=== PATIENT | female | born 1950 | race Caucasian/White ===

== ENCOUNTER 2018-09-25 11:52 | Inpatient (IN) | payer OTHER ==
--- NOTE | 2018-09-25 12:57 | PDOC ---
History of Present Illness - General Stated Complaint: DIZINESS/SOB Time Seen by Provider: 09/25/18 12:08 - History of Present Illness Initial Comments: Aranza Chase is a 68yo woman with a PMH of CAD (cath 3yrs ago at [place]) , HTN, HLD who presents with mid-sternal and left arm pain, RYAN, and dizziness this morning since she woke around 7am. She additionally reports right-sided numbness and weakness that started at some point overnight. This is mild but noticeable, and she has never had either symptom before. She first noticed the weakness/numbness when she woke up around 1am. She is most concerned about the shortness of breath as this has never happened before. She says that she gets short of breath "after 2 steps" today when she normally has no SOB when walking. She states that the chest pain is mid-sternal , but she is unable to describe the pain. It does not appear to be related to position or arm movement, and it does not feel similar to pain she had previously before her cardiac cath. The dizziness she describes as an inability to keep her balance, and she is not sure whether she feels that the world is spinning or not. She denies any recent cough, fever/chills, vomiting, poor PO intake, or change in medication. NIH Stroke Scale - Last Known Well Date/Time & Onset Date Last Known Well: 09/24/18 - Initial Evaluation Level of consciousness: Alert Ask patient the month and their age: Answers both correctly Ask patient to open & close eyes; make fist and let go: Obeys both correctly Best gaze (horizontal eye movement): Normal Visual field testing: No visual field loss Facial paresis (Show teeth/raise eyebrows/close eyes tight): Normal symmetrical movement Motor Function: Left Arm: Normal Motor Function: Right Arm: Drift Motor Function: Left Leg: Normal (extends leg 30 degrees for 5 seconds without drift) Motor Function: Right Leg: Drift Limb Ataxia: No ataxia Sensory(Use pinprick test arms,legs,trunk,face/side to side): Mild to moderate decrease in sensation Best language (Describe picture, name items, read sentences): No Aphasia Dysarthria (read several words): Normal articulation Extinction and Inattention: No abnormality - Total Score NIH Stroke Scale Score: 3 Past History - Past Medical History Allergies/Adverse Reactions: Allergies Allergy/AdvReac Type Severity Reaction Status Date / Time No Known Allergies Allergy Verified 09/25/18 12:40 Home Medications: Ambulatory Orders Amlodipine Besylate [Norvasc -] 0 mg PO DAILY 09/25/18 Aspirin [Aspirin EC] 81 mg PO DAILY 09/25/18 Omeprazole 20 mg PO DAILY 09/25/18 Oxycodone HCl/Acetaminophen [Percocet 5-325 mg Tablet] 1 tab PO Q4H PRN Simvastatin 40 mg PO DAILY 09/25/18 COPD: No HTN: Yes Hypercholesterolemia: Yes - Surgical History Abdominal Surgery: Yes Cholecystectomy: Yes - Suicide/Smoking/Psychosocial Hx Smoking History: Current every day smoker Number of Cigarettes Smoked Daily: 10 Information on smoking cessation initiated: No Hx Alcohol Use: No Drug/Substance Use Hx: No Substance Use Type: None Review of Systems - Review of Systems Comments:: General: No fevers, no chills, no weight or appetite change, no malaise HEENT: No changes in vision, no changes in hearing, no congestion, no sore throat CV: See HPI Pulm: + SOB, no cough, no wheezing GI: No nausea or vomiting, no change in bowel habits, no melena : No frequency, no urgency, no dysuria Musc: No back pain, no joint swelling, no recent injury Skin: No rash, no lesions, no erythema Endo: No excessive thirst, no heat/cold intolerance Heme: No unusual bruising or bleeding, no swollen glands Neuro: No syncope, + numbness/tingling, + right weakness Vasc: No claudication Psych: No recent change in mood, no SI or HI *Physical Exam - Vital Signs Last Vital Signs Temp Pulse Resp BP Pulse Ox 98.3 F 62 19 133/54 L 98 09/25/18 12:00 09/25/18 12:00 09/25/18 12:00 09/25/18 12:00 09/25/18 12:00 - Physical Exam Comments: General: Comfortable, no acute distress HEENT: PERRL, EOMI, MMM, voice normal, normal neck ROM, no LAD Cards: RRR, no murmur appreciated Pulm: Comfortable on room air, clear to auscultation bilaterally Abd: Soft, nontender, nondistended : No CVA tenderness Ext: Atraumatic. No LE edema. ROM intact Vasc: Extremities WWP Skin: Normal color, no rashes or lesions Neuro: A&Ox3, CN grossly intact, normal speech. Slight drift in Rt arm and leg. Pinprick less sharp on rt than left. No ataxia, no visual abnormalities Psych: Mood appropriate to situation Heart Score/ECG Review - History History: Highly suspicious - Electrocardiogram EKG: Normal - Age Age: >/= 65 - Risk Factors Based on the list above the patient has:: >/=3 risk factors or Hx atherosclerotic disease - Troponin Troponin: </= normal limit - Score Heart Score - Total: 6 ED Treatment Course - LABORATORY CBC & Chemistry Diagram: 09/25/18 13:27 09/25/18 13:27 Medical Decision Making - Medical Decision Making 09/25/18 12:51 Aranza Chase is a 68yo woman with a PMH of CAD (cath 3yrs ago at [place]) , HTN, HLD who presents with mid-sternal and left arm pain, RYAN, and dizziness this morning since she woke around 7am as well as right-sided numbness and weakness that started at some point overnight. - Chest pain and associated symptoms concerning for ACS, especially given h/o known CAD. Heart score 6 - CBC, CMP, trop, EKG, CXR ordered - CT head for eval of neuro symptoms; weakness and sensory changes noted on exam , stroke scale 3 09/25/18 14:35 - Labs completed, reviewed. No concerning abnormalities - CT head negative - EKG w/ NSR, HR 62, normal intervals, left axis deviation, incomplete RBBB, no ST or t-wave changes - Given concerning neuro and cardiac symptoms, will admit for additional workup. Page sent for admission 09/25/18 15:20 - Pt endorsed to Jewel Ramirez. Will admit to Dr Ellison's service on telemetry. 09/25/18 16:44 - Spoke to Dr Greenfield as pt sees him as an outpatient. Requesting that Ms Chase be given a full-dose aspirin. He will see her while in the hospital. Discussed with Dr Horton. Nazanin Donohue PGY2 *DC/Admit/Observation/Transfer Diagnosis at time of Disposition: Dyspnea on exertion, Right sided weakness Chest pain Qualifiers: Chest pain type: unspecified Qualified Code(s): R07.9 - Chest pain, unspecified - Discharge Dispostion Decision to Admit order: Yes - Referrals - Patient Instructions - Post Discharge Activity
[2018-09-25 13:47] LABS: INR 1.15 (0.83-1.09); PROTHROMBIN TIME (PATIENT) 13.6 SEC (9.7-13.0)
[2018-09-25 13:50] LABS: ACTIVATED PTT 31.4 SECONDS (25.2-36.5)
[2018-09-25 14:02] LABS: ALBUMIN 3.7 g/dl (3.4-5.0); ALK PHOS 124 U/L (45-117); ANION GAP 4 MMOL/L (8-16); BILIRUBIN,TOTAL 0.3 mg/dL (0.2-1); CALCIUM 8.9 mg/dL (8.5-10.1); CHLORIDE 110 mmol/L (98-107); CO2 29 mmol/L (21-32); CREATININE 0.8 mg/dL (0.55-1.3); GLUCOSE,RANDOM 129 mg/dL (74-106); POTASSIUM 3.8 mmol/L (3.5-5.1); SGOT/AST 9 U/L (15-37); SGPT/ALT 12 U/L (13-61); SODIUM 143 mmol/L (136-145); TOT PROT 6.8 g/dl (6.4-8.2)
[2018-09-25 14:04] LABS: BASO % 0.4 % (0-2.0); EOS % 1.3 % (0-4.5); HEMATOCRIT 35.7 % (32.4-45.2); HEMOGLOBIN 11.8 GM/dL (10.7-15.3); LYMPH % 21.8 % (8-40); MCH 28.1 pg (25.7-33.7); MEAN PLT VOLUME 8.8 fl (7.5-11.1); MONO % 6.1 % (3.8-10.2); NEUT % 70.4 % (42.8-82.8); RDW 14.3 % (11.6-15.6)
--- NOTE | 2018-09-25 14:14 | PDOC ---
Documentation entered by Edith Philip SCRIBE, acting as scribe for Candy Horton MD. Candy Horton MD: This documentation has been prepared by the rachellibe, Edith Philip SCRIBE, under my direction and personally reviewed by me in its entirety. I confirm that the documentation accurately reflects all work, treatment, procedures, and medical decision making performed by me. Attending Attestation - Resident Resident Name: JaydeNazanin - ED Attending Attestation I have performed the following: I have examined & evaluated the patient, The case was reviewed & discussed with the resident, I agree w/resident's findings & plan, Exceptions are as noted - HPI HPI: 09/25/18 13:09 The patient is a 68-yo F h/o HTN, HLD, CAD, who presents to the ED with exertional sob and chest pain, and new onset of weakness and RT-sided numbness. pt states her weakness started 2 days prior, was initially generalized , then noted to be right sided. this am pt family noted that her face had a right sided droop. chest pain was yesterday, described as a tightness. also noted right sided numbness. has had a cath 3 yrs ago noted to have CAD. see debeader at [facility] [place], has also seen a nuerologist in the past dr russell. no pmhx of stroke, but strong family h/o cva. The patient denies any fevers, chills, nausea, vomiting, or diarrhea. no urinary complaints. Allergies: NKA PCP: Dr. Shen - Physicial Exam PE: 09/25/18 14:07 NAD awake alert lungs clear bilat heart rrr no mrg abd soft nt nd ext wwp no edema. no calf tenderness. nuero pt awake alert oriented x 3. strength mild weakness noted right upper and lower ext 4+/5. decreased sensation to light touch on right side. speech clear, VF intact. CN II - XII intact. skin warm and dry. - Medical Decision Making 09/25/18 14:10 pt 68 yo F h/o HTN HLD CAD here with right sided weakness, numbness and chest pain. differential includes cva, mass, ich, acs, plan ct head labs ekg cxr nuero consult, aspirin, will admit to tele . 09/25/18 16:16 Dr. Tomlinson was paged and notified via phone service. NIH Stroke Scale - Last Known Well Date/Time & Onset Date Last Known Well: 09/23/18 - Initial Evaluation Level of consciousness: Alert Ask patient the month and their age: Answers both correctly Ask patient to open & close eyes; make fist and let go: Obeys both correctly Best gaze (horizontal eye movement): Normal Visual field testing: No visual field loss Facial paresis (Show teeth/raise eyebrows/close eyes tight): Normal symmetrical movement Motor Function: Left Arm: Normal Motor Function: Right Arm: Drift Motor Function: Left Leg: Normal (extends leg 30 degrees for 5 seconds without drift) Motor Function: Right Leg: Drift Limb Ataxia: No ataxia Sensory(Use pinprick test arms,legs,trunk,face/side to side): Mild to moderate decrease in sensation (right arm and leg) Best language (Describe picture, name items, read sentences): No Aphasia Dysarthria (read several words): Normal articulation Extinction and Inattention: No abnormality - Total Score NIH Stroke Scale Score: 3
[2018-09-25 14:23] LABS: PLATELET COUNT 237 K/MM3 (134-434)
[2018-09-25 14:31] LABS: N-TERMINAL BNP 63.4 pg/ml (5-125)
--- NOTE | 2018-09-25 16:00 | EKG ---
Test Reason : Blood Pressure : / mmHG Vent. Rate : 062 BPM Atrial Rate : 062 BPM P-R Int : 164 ms QRS Dur : 096 ms QT Int : 422 ms P-R-T Axes : 032 -03 058 degrees QTc Int : 428 ms NORMAL SINUS RHYTHM INCOMPLETE RIGHT BUNDLE BRANCH BLOCK BORDERLINE ECG NO PREVIOUS ECGS AVAILABLE Confirmed by PATSY COLIN MD ([id number]) on 09/25/2018 3:59:41 PM Referred By: Confirmed By:PATSY COLIN MD
[2018-09-25] MEDS ORDERED: oxyCODONE HCL 5 MG TABLET PO PRN (16:40)
[2018-09-25] MEDS ORDERED: ASPIRIN 81 MG CHEWABLE TABLETS PO ONE (16:45)
[2018-09-25] MEDS ORDERED: ASPIRIN 81 MG CHEWABLE TABLETS ONE (17:42)
--- NOTE | 2018-09-25 21:14 | HP ---
Admitting History and Physical - Primary Care Physician PCP: Tima Shen - Admission Chief Complaint: Chest pain with right sided weakness History of Present Illness: Patient is a 68 y/o female with past medical history of CAD (cath 3 yrs ago at [facility]), HTN, HLD. Patient presented to ER with complaints of chest pain and right sided weakness/numbness. Patient states that at 1am she felt sharp, non- radiating, mid chest pain accompanied with left arm pain, right sided weakness/ numbness, SOB, and palpitations. History Source: Patient Limitations to Obtaining History: No Limitations - Past Medical History Cardiovascular: Yes: CAD, HTN, Hyperlipdemia - Past Surgical History Past Surgical History: Yes: Cholecystectomy, Hysterectomy, Joint Replacement (R knee), Tonsillectomy - Smoking History Smoking history: Current every day smoker Aproximately how many cigarettes per day: 10 - Alcohol/Substance Use Hx Alcohol Use: No - Social History Usual Living Arrangement: Yes: With Child ADL: Independent Home Medications - Allergies Allergies/Adverse Reactions: Allergies Allergy/AdvReac Type Severity Reaction Status Date / Time No Known Allergies Allergy Verified 09/25/18 12:40 - Home Medications Home Medications: Ambulatory Orders Amlodipine Besylate [Norvasc -] 0 mg PO DAILY 09/25/18 Aspirin [Aspirin EC] 81 mg PO DAILY 09/25/18 Omeprazole 20 mg PO DAILY 09/25/18 Oxycodone HCl/Acetaminophen [Percocet 5-325 mg Tablet] 1 tab PO Q4H PRN Simvastatin 40 mg PO DAILY 09/25/18 Review of Systems - Review of Systems Constitutional: reports: Weakness Eyes: reports: No Symptoms HENT: reports: No Symptoms Neck: reports: No Symptoms Cardiovascular: reports: Chest Pain, Palpitations, Shortness of Breath Respiratory: reports: SOB, SOB on Exertion Gastrointestinal: reports: Nausea Genitourinary: reports: No Symptoms Musculoskeletal: reports: Muscle Weakness Integumentary: reports: No Symptoms Neurological: reports: Dizziness, Headache, Numbness (R side), Weakness (R side) Endocrine: reports: No Symptoms Hematology/Lymphatic: reports: No Symptoms Psychiatric: reports: No Symptoms Physical Examination Vital Signs: Vital Signs Temperature 97.8 F 09/25/18 19:59 Pulse Rate 54 L 09/25/18 19:59 Respiratory Rate 18 09/25/18 19:59 Blood Pressure 127/57 L 09/25/18 19:59 O2 Sat by Pulse Oximetry (%) 100 09/25/18 19:59 Constitutional: Yes: No Distress, Calm, Obese Eyes: Yes: Conjunctiva Clear HENT: Yes: Atraumatic Neck: Yes: Supple Cardiovascular: Yes: Regular Rate and Rhythm Respiratory: Yes: Regular, CTA Bilaterally Gastrointestinal: Yes: Normal Bowel Sounds, Soft Musculoskeletal: Yes: Muscle Weakness Extremities: Yes: WNL Edema: No Neurological: Yes: Alert, Weakness (RUE and RLE), Other (no slurred speech, no facial droop) Psychiatric: Yes: Alert, Oriented Labs: CBC, BMP 09/25/18 13:27 09/25/18 13:27 Imaging - Results Cat Scan: Report Reviewed Problem List - Problems (1) Chest pain Assessment/Plan: -Cardiology consult -tele monitoring -troponin neg x 1 -aspirin 81mg daily Code(s): R07.9 - CHEST PAIN, UNSPECIFIED Qualifiers: Chest pain type: unspecified Qualified Code(s): R07.9 - Chest pain, unspecified (2) Dyspnea on exertion Assessment/Plan: -pulm consult -O2 via [place] prn for SOB -keep SpO2 >90% Code(s): R06.09 - OTHER FORMS OF DYSPNEA (3) Right sided weakness Assessment/Plan: -Neurology consult -Head CT scan shows no acute bleed or fracture -neuro checks -fall precautions Code(s): R53.1 - WEAKNESS Assessment/Plan see problem list dvt ppx
[2018-09-25] MEDS ORDERED: CYCLOBENZAPRINE HCL 10 MG TABLET (FP) ONE (21:26)
[2018-09-25] MEDS ORDERED: HEPARIN NA (PORCINE) 5,000 UNITS/ML 1ML VIAL ONE (21:26)
[2018-09-25] MEDS: CYCLOBENZAPRINE HCL 10 MG TABLET (FP) PO SCH (22:24)
[2018-09-25] MEDS: HEPARIN NA (PORCINE) 5,000 UNITS/ML 1ML VIAL SQ SCH (22:24)
[2018-09-26 07:12] LABS: BASO % 0.3 % (0-2.0); EOS % 1.2 % (0-4.5); HEMATOCRIT 34.3 % (32.4-45.2); HEMOGLOBIN 11.4 GM/dL (10.7-15.3); MCH 28.5 pg (25.7-33.7); MCHC 33.3 g/dl (32.0-36.0); MEAN CELL VOLUME 85.5 fl (80-96); MEAN PLT VOLUME 7.9 fl (7.5-11.1); MONO % 6.1 % (3.8-10.2); NEUT % 63.4 % (42.8-82.8); PLATELET COUNT 215 K/MM3 (134-434); RBC 4.01 M/mm3 (3.60-5.2); RDW 14.3 % (11.6-15.6); WHITE BLOOD COUNT 9.9 K/mm3 (4.0-10.0)
[2018-09-26 07:31] LABS: ALBUMIN 3.4 g/dl (3.4-5.0); ALK PHOS 119 U/L (45-117); ANION GAP 4 MMOL/L (8-16); BILIRUBIN,TOTAL 0.2 mg/dL (0.2-1); BLOOD UREA NITROGEN 14.8 mg/dL (7-18); CALCIUM 8.8 mg/dL (8.5-10.1); CHLORIDE 110 mmol/L (98-107); CHOLESTEROL 167 mg/dL (50-200); CO2 29 mmol/L (21-32); CREATININE 0.7 mg/dL (0.55-1.3); GLUCOSE,RANDOM 91 mg/dL (74-106); HDL CHOLESTEROL 46 mg/dL (40-60); MAGNESIUM 2.1 mg/dL (1.8-2.4); PHOSPHOROUS 3.7 mg/dL (2.5-4.9); POTASSIUM 3.9 mmol/L (3.5-5.1); SGOT/AST 8 U/L (15-37); SGPT/ALT 11 U/L (13-61); SODIUM 143 mmol/L (136-145); TOT PROT 6.3 g/dl (6.4-8.2); TRIGLYCERIDES 105 mg/dL (0-150)
--- NOTE | 2018-09-26 08:21 | PN ---
Progress Note, Physician Chief Complaint: Chest pain Right sided weakness History of Present Illness: Previous notes and events reviewed sleeping, but arouseable to tactile and verbal stimuli NAD sts feeling a little better continue to have chest tightness - Current Medication List Current Medications: Active Medications Acetaminophen (Tylenol -) 325 mg PO Q4H PRN PRN Reason: MAXWELL SCALE 1-10 Amlodipine Besylate (Norvasc -) 10 mg PO DAILY [facility] Aspirin (Ecotrin -) 81 mg PO DAILY [facility] Cyclobenzaprine HCl (Flexeril -) 10 mg PO HS [facility] Last Admin: 09/25/18 22:24 Dose: 10 mg Heparin Sodium (Porcine) (Heparin -) 5,000 unit SQ BID [facility] Last Admin: 09/25/18 22:24 Dose: 5,000 unit Oxycodone HCl (Roxicodone -) 1 mg PO Q4H PRN PRN Reason: PAIN SCALE 1-10 Pantoprazole Sodium (Protonix -) 40 mg PO DAILY [facility] - Objective Vital Signs: Vital Signs Temperature 98.3 F 09/26/18 07:09 Pulse Rate 51 L 09/26/18 07:09 Respiratory Rate 18 09/26/18 07:09 Blood Pressure 134/76 09/26/18 07:09 O2 Sat by Pulse Oximetry (%) 100 09/26/18 07:09 Constitutional: Yes: No Distress, Calm Eyes: Yes: Conjunctiva Clear HENT: Yes: Atraumatic Cardiovascular: Yes: Regular Rate and Rhythm Respiratory: Yes: Regular, CTA Bilaterally Gastrointestinal: Yes: Normal Bowel Sounds, Soft Musculoskeletal: Yes: Muscle Weakness Extremities: Yes: WNL Edema: No Neurological: Yes: Alert, Weakness (R side) Psychiatric: Yes: Alert, Oriented Labs: CBC, BMP 09/26/18 06:30 09/26/18 06:30 INR, PTT INR 1.15 (0.83-1.09) H 09/25/18 13:27 Problem List - Problems (1) Chest pain Assessment/Plan: -Cardiology consult -tele monitoring -troponin neg x 2 -aspirin 81mg daily Code(s): R07.9 - CHEST PAIN, UNSPECIFIED Qualifiers: Chest pain type: unspecified Qualified Code(s): R07.9 - Chest pain, unspecified (2) Dyspnea on exertion Assessment/Plan: -pulm consult -O2 via [place] prn for SOB -keep SpO2 >90% Code(s): R06.09 - OTHER FORMS OF DYSPNEA (3) Right sided weakness Assessment/Plan: -Neurology consult -Head CT scan shows no acute bleed or fracture -neuro checks -fall precautions Code(s): R53.1 - WEAKNESS Assessment/Plan see problem list dvt ppx
[2018-09-26] MEDS: PANTOPRAZOLE 40 MG TABLET (FP) PO SCH (10:30)
[2018-09-26] MEDS: amLODIPine BESYLATE 10 MG TABLET (FP) PO SCH (10:30)
[2018-09-26] MEDS: ASPIRIN COATED 81 MG TABLET.EC PO SCH (10:30)
[2018-09-26] MEDS: HEPARIN NA (PORCINE) 5,000 UNITS/ML 1ML VIAL SQ SCH ×2 (10:41→21:46)
--- NOTE | 2018-09-26 14:39 | CON.PULM ---
Consult Consult Specialty:: PULMONARY Referred by:: PMD Reason for Consultation:: RYAN - History of Present Illness Chief Complaint: SOB ON EXERTION History of Present Illness: Aranza Chase is a 68yo woman with a PMH of CAD (cath 3yrs ago at [place]) She states she may have a stent but is not sure, HTN, HLD who presents with mid- sternal chest discomfort and ryan. She also describes left arm pain,and dizziness this morning since she woke around 7am. She additionally reports right -sided numbness and weakness that started at some point overnight She denies any recent cough, fever/chills, vomiting, poor PO intake, or change in medication. She is an active smoker. 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 No: Asthma Gastrointestinal: No: Ascites, Ulcerative Colitis Renal/: No: Renal Failure Reproductive: Yes: Postmenopausal ...: No Heme/Onc: Yes: Anemia Musculoskeletal: Yes: Osteoarthritis Endocrine: No: Diabetes Mellitus - Past Surgical History Past Surgical History: Yes: Cholecystectomy, Hysterectomy, Joint Replacement (R knee), Tonsillectomy - Alcohol/Substance Use Hx Alcohol Use: No - Smoking History Smoking history: Current every day smoker Have you smoked in the past 12 months: Yes Aproximately how many cigarettes per day: 10 - Social History ADL: Independent Place of : Other History of Recent Travel: No Home Medications - Allergies Allergies/Adverse Reactions: Allergies Allergy/AdvReac Type Severity Reaction Status Date / Time No Known Allergies Allergy Verified 09/25/18 12:40 - Home Medications Home Medications: Ambulatory Orders Amlodipine Besylate [Norvasc -] 0 mg PO DAILY 09/25/18 Aspirin [Aspirin EC] 81 mg PO DAILY 09/25/18 Omeprazole 20 mg PO DAILY 09/25/18 Oxycodone HCl/Acetaminophen [Percocet 5-325 mg Tablet] 1 tab PO Q4H PRN Simvastatin 40 mg PO DAILY 09/25/18 Review of Systems - Review of Systems Constitutional: denies: Fever Eyes: denies: Blurred Vision HENT: denies: Difficult Swallowing Neck: denies: Decreased ROM Cardiovascular: reports: Chest Pain, Shortness of Breath Respiratory: reports: Cough, Exercise Intolerance, SOB, SOB on Exertion. denies : Hemoptysis, Wheezing Gastrointestinal: denies: Abdominal Pain Genitourinary: denies: Burning Breasts: reports: No Symptoms Reported Musculoskeletal: reports: No Symptoms Integumentary: reports: No Symptoms Neurological: reports: No Symptoms Endocrine: reports: No Symptoms Physical Exam Vital Sings: Vital Signs Temperature 98.4 F 09/26/18 10:15 Pulse Rate 57 L 09/26/18 10:15 Respiratory Rate 18 09/26/18 10:15 Blood Pressure 134/76 09/26/18 10:15 O2 Sat by Pulse Oximetry (%) 99 09/26/18 10:43 Constitutional: Yes: Calm Eyes: Yes: EOM Intact HENT: Yes: Normocephalic Neck: Yes: Trachea Midline Cardiovascular: Yes: S1, S2 Respiratory: Yes: CTA Bilaterally Gastrointestinal: Yes: Normal Bowel Sounds, Abdomen, Obese Edema: No Labs: CBC, BMP 09/26/18 06:30 09/26/18 06:30 Imaging - Results Chest X-ray: Report Reviewed, Image Reviewed EKG: Report Reviewed, Image Reviewed Problem List - Problems (1) COPD (chronic obstructive pulmonary disease) Code(s): J44.9 - CHRONIC OBSTRUCTIVE PULMONARY DISEASE, UNSPECIFIED (2) Chest pain Code(s): R07.9 - CHEST PAIN, UNSPECIFIED Qualifiers: Chest pain type: unspecified Qualified Code(s): R07.9 - Chest pain, unspecified (3) Dyspnea on exertion Code(s): R06.09 - OTHER FORMS OF DYSPNEA Assessment/Plan RYAN LIKELYDUE TO COPD IN ACTIVE SMOKER ATYPICAL CHEST PAIN WARRANTS INVESTIGATION WOULD OBTAIN CATH RESULTS FROM 3 YEARS AGO IF POSSIBLE CHECK PRE/POST AMB SPO2 ON R/A ECHO/CT CHEST CARDIO EVAL AWAITED BRONCHODILATORS/NO NEED FOR SYSTEMIC STEROIDS OR ABS AT THIS POINT/ SMOKING CESSATION WILL FOLLOW Wero MITCHELL MD
[2018-09-26] MEDS ORDERED: BUDESONIDE/FORMETEROL FUMARATE 80/4.5 mcg INHALER IH ONE (14:47)
--- NOTE | 2018-09-26 17:09 | CON.CARD ---
Consult Consult Specialty:: Cardiology Referred by:: Dr. Oleary Reason for Consultation:: chest pain - History of Present Illness Chief Complaint: chest pain, R sided weakness sob History of Present Illness: 68 year old woman with pmh HTN, HLD, unknown if has CAD reported cardiac cath at [facility] 3 years ago but pt does not know the results now admitted with chest pain, R sided weakness and numbness, sob, palpitations. pt seen and examined today in nad. currently asymptomatic. no pnd, orthopnea, or le edema. 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 No: Asthma Gastrointestinal: No: Ascites, Ulcerative Colitis Renal/: No: Renal Failure ...: No Musculoskeletal: Yes: Osteoarthritis Endocrine: No: Diabetes Mellitus - Past Surgical History Past Surgical History: Yes: Cholecystectomy, Hysterectomy, Joint Replacement (R knee), Tonsillectomy - Alcohol/Substance Use Hx Alcohol Use: No - Smoking History Smoking history: Current every day smoker Have you smoked in the past 12 months: Yes Aproximately how many cigarettes per day: 10 - Social History ADL: Independent History of Recent Travel: No Home Medications - Allergies Allergies/Adverse Reactions: Allergies Allergy/AdvReac Type Severity Reaction Status Date / Time No Known Allergies Allergy Verified 09/25/18 12:40 - Home Medications Home Medications: Ambulatory Orders Amlodipine Besylate [Norvasc -] 0 mg PO DAILY 09/25/18 Aspirin [Aspirin EC] 81 mg PO DAILY 09/25/18 Omeprazole 20 mg PO DAILY 09/25/18 Oxycodone HCl/Acetaminophen [Percocet 5-325 mg Tablet] 1 tab PO Q4H PRN Simvastatin 40 mg PO DAILY 09/25/18 Family Disease History - Family Disease History Family History: Denies Review of Systems - Review of Systems Constitutional: denies: No Symptoms, Chills, Diaphoresis, Fever, Lethargy, Loss of Appetite, Malaise, Night Sweats, Unintentional Wgt. Loss, Weakness, Other Eyes: denies: No Symptoms, Blind Spots, Blurred Vision, Double Vision, Eye Pain , Floaters, Photophobia, Recent Change in Vision, Other HENT: denies: No Symptoms, Difficult Swallowing, Ear Discharge, Ear Pain, Epistaxis, Gingival Bleeding, Hearing Loss, Mouth Swelling, Nasal Congestion, Ocular Prosthesis, Throat Pain, Toothache, Ringing in Ears, Other Neck: denies: No Symptoms, Decreased ROM, Lumps, Pain on Movement, Stiffness, Swollen Glands, Tenderness, Other Cardiovascular: reports: Chest Pain, Palpitations, Shortness of Breath. denies : No Symptoms, Edema, Other Respiratory: reports: SOB. denies: No Symptoms, Cough, Exercise Intolerance, Hemoptysis, Orthopnea, PND, Snoring, SOB on Exertion, Wheezing, Other Gastrointestinal: denies: No Symptoms, Abdominal Pain, Bloating, Constipation, Diarrhea, Dysphagia, Indigestion, Melena, Nausea, Rectal Bleeding, Vomiting, Vomiting Blood, Other Genitourinary: denies: No Symptoms, Burning, Discharge, Dysuria, Flank Pain, Frequency, Hematuria, Incontinence, Lesions, Menses, Pain, Testicular Mass, Testicular Pain, Testicular Swelling, Urgency, Vaginal Bleeding, Other Breasts: denies: No Symptoms Reported, See HPI, Breast Implants, Discharge from Nipple, Lumps, Pain, Skin Changes, Other Musculoskeletal: denies: No Symptoms, Back Pain, Crepitus, Decreased ROM, Extremity Pain, Joint Pain, Joint Swelling, Muscle Pain, Muscle Cramps, Muscle Weakness, Other Integumentary: denies: No Symptoms, Blister, Bruising, Change in Color, Eczema, Erythema, Incision, Lesions, Lump, Pallor, Pruritis, Rash, Wound, Other Neurological: denies: No Symptoms, Change in LOC, Change in Speech, Confusion, Dizziness, Headache, Incoordination, Numbness, Parasthesia, Pre-Existing Deficit , Seizure, Syncope, Tremors, Unsteady Gait, Weakness, Other Endocrine: denies: No Symptoms, Excessive Sweating, Flushing, Increased Hunger, Increased Thirst, Intolerance to Cold, Intolerance to Heat, Unexplained Weight Gain, Unexplained Weight Loss, Other Hematology/Lymphatic: denies: No Symptoms, Easily Bruised, Excessive Bleeding, Swollen Glands, Other Psychiatric: denies: No Symptoms, Altered Sleep Pattern, Anxiety, Depression, Hallucinations, Panic, Paranoia, Suicidal, Other - Risk Factors Known Risk Factors: Yes: Hypercholesterolemia, Hypertension Vital Signs: Vital Signs Temperature 98.4 F 09/26/18 14:30 Pulse Rate 62 07/14/19 17:02 Respiratory Rate 18 09/26/18 17:02 Blood Pressure 138/82 09/26/18 17:02 O2 Sat by Pulse Oximetry (%) 99 09/26/18 17:02 Constitutional: Yes: No Distress, Calm Eyes: Yes: Conjunctiva Clear, EOM Intact, PERRL HENT: Yes: Atraumatic, Normocephalic Neck: Yes: Supple, Trachea Midline Respiratory: Yes: Regular, CTA Bilaterally. No: Rales, Rhonchi, Wheezes Gastrointestinal: Yes: Normal Bowel Sounds, Soft. No: Distention, Tenderness Cardiovascular: Yes: Regular Rate and Rhythm. No: Bradycardia, Tachycardia, Pulse Irregular, Gallop, Rub, Varicosities JVD: No Carotid Bruit: No PMI: Non-Displaced Heart Sounds: Yes: S1, S2. No: Split S2, S3, S4, Clicks, Gallop, Rub, Bruit Murmur: No: Systolic Murmur, Diastolic Murmur Musculoskeletal: Yes: WNL Extremities: Yes: WNL Edema: No Peripheral Pulses WNL: Yes Peripheral Pulses: 2+ Left Doralis Pedis, 2+ Right Dorsalis Pedis Neurological: Yes: Alert, Oriented Psychiatric: Yes: Alert, Oriented - Other Data Labs, Other Data: CBC, BMP 09/26/18 06:30 09/26/18 06:30 INR, PTT INR 1.15 (0.83-1.09) H 09/25/18 13:27 Troponin, BNP 09/26/18 06:30 Troponin I < 0.02 Troponin, BNP 09/26/18 06:30 Troponin I < 0.02 nsr 62bpm incomplete rbbb Imaging - Results Chest X-ray: Report Reviewed, Image Reviewed EKG: Report Reviewed, Image Reviewed Other: Report Reviewed, Image Reviewed Assessment/Plan 68 year old woman with pmh HTN, HLD, unknown if has CAD reported cardiac cath at [facility] 3 years ago but pt does not know the results now admitted with chest pain, R sided weakness and numbness, sob, palpitations. currently asymptomatic. no pnd, orthopnea, or le edema. Chest pain-atypical -cardiac enzymes wnl -ekg no ischemia -no further chest pain since admission -Please Obtain results of cardiac cath from [facility] for review -if no sig CAD on prior cardiac cath then would be acceptable to have further cardiac work up as outpatient. -if she did have prior stents or if sig non-obs CAD was seen on last cardiac cath would then consider further work up. -no signs of CHF on exam or imaging -no signs of ischemia
[2018-09-26] MEDS ORDERED: ALBUTEROL SO4 2.5/IPRATROPIUM 0.5 INH SOL 3 ML VIAL.NEB. NEB SCH (18:00)
[2018-09-26] MEDS: oxyCODONE HCL 5 MG TABLET PO PRN (21:44)
[2018-09-26] MEDS: ACETAMINOPHEN 325 MG TABLET (FP) PO PRN (21:45)
[2018-09-26] MEDS: CYCLOBENZAPRINE HCL 10 MG TABLET (FP) PO SCH (21:45)
[2018-09-26] MEDS ORDERED: DEXAMETHASONE SOD PHOSPHATE 10 MG/1 ML VIAL ONE (21:50)
[2018-09-26] MEDS ORDERED: RANITIDINE HCL 150 MG TABLET (FP) ONE (21:51)
[2018-09-26] MEDS ORDERED: diphenhydrAMINE HCL 25 MG CAPSULE (FP) PO ONE (21:51)
[2018-09-27] MEDS: ALBUTEROL SO4 2.5/IPRATROPIUM 0.5 INH SOL 3 ML VIAL.NEB. NEB SCH ×4 (07:30→21:15)
--- NOTE | 2018-09-27 08:42 | CON.NEURO ---
Consult Consult Specialty:: Jean Pierre Referred by:: ER - History of Present Illness History of Present Illness: 68 years old woman with PMH CAD OA hypertension Anxiety Presents to the hospital with a chief complaint of chest pain heaviness fatigue and right-sided numbness and tingling. 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 No: Asthma Gastrointestinal: No: Ascites, Ulcerative Colitis Renal/: No: Renal Failure ...: No Musculoskeletal: Yes: Osteoarthritis Endocrine: No: Diabetes Mellitus - Past Surgical History Past Surgical History: Yes: Cholecystectomy, Hysterectomy, Joint Replacement (R knee), Tonsillectomy - Alcohol/Substance Use Hx Alcohol Use: No - Smoking History Smoking history: Current every day smoker Have you smoked in the past 12 months: Yes Aproximately how many cigarettes per day: 10 - Social History ADL: Independent History of Recent Travel: No Home Medications - Allergies Allergies/Adverse Reactions: Allergies Allergy/AdvReac Type Severity Reaction Status Date / Time No Known Allergies Allergy Verified 09/25/18 12:40 - Home Medications Home Medications: Ambulatory Orders Amlodipine Besylate [Norvasc -] 0 mg PO DAILY 09/25/18 Aspirin [Aspirin EC] 81 mg PO DAILY 09/25/18 Omeprazole 20 mg PO DAILY 09/25/18 Oxycodone HCl/Acetaminophen [Percocet 5-325 mg Tablet] 1 tab PO Q4H PRN Simvastatin 40 mg PO DAILY 09/25/18 Family Disease History - Family Disease History Family History: Denies (stroke) Review of Systems - Review of Systems Constitutional: reports: No Symptoms Eyes: reports: No Symptoms HENT: reports: No Symptoms Neurological: reports: Headache, Incoordination, Numbness, Parasthesia Physical Exam-Neuro Vital Signs: Vital Signs Temperature 97.5 F L 09/27/18 06:00 Pulse Rate 58 L 09/27/18 06:00 Respiratory Rate 18 09/27/18 06:00 Blood Pressure 135/70 09/27/18 06:00 O2 Sat by Pulse Oximetry (%) 99 09/26/18 21:00 Constitutional: Yes: Well Nourished Neck: Yes: WNL Labs: CBC, BMP 09/26/18 06:30 09/26/18 06:30 INR, PTT INR 1.15 (0.83-1.09) H 09/25/18 13:27 - Neuro Exam Level Of Consciousness: Yes: Oriented to Person, Oriented to Place, Oriented to Time Eyes: Yes: PERRLA Speech: WNL Dominant Hand: Right Cranial Nerves II-XII Intact: Yes Gag: Present DTR's: 1+ Left Bicep, 1+ Right Bicep, 1+ Left Tricep, 1+ Right Tricep, 1+ Left Brachioradialis Response to light touch: Abnormal Response to pain prick: Abnormal Response to temperature: Abnormal Motor Strength: 2/5: Right Arm, 3/5: Left Arm, Left Leg, Right Leg Gait: Deferred Imaging - Results Cat Scan: Image Reviewed Problem List - Problems (1) Right sided weakness Assessment/Plan: left MCA lacunar stroke subacute Not a candidate for TPA 1. MRI of the brain with no contrast. 2. Full aspirin. 3. Echocardiogram. 4. Out of bed to chair. 5. DVT prophylaxis. 6. Physical therapy Thank you very much for allowing me to be part of this patient neurological care Code(s): R53.1 - WEAKNESS
--- NOTE | 2018-09-27 08:59 | PN ---
Progress Note, Physician - Current Medication List Current Medications: Active Medications Acetaminophen (Tylenol -) 325 mg PO Q4H PRN PRN Reason: MAXWELL SCALE 1-10 Last Admin: 09/26/18 21:45 Dose: 325 mg Albuterol/Ipratropium (Duoneb -) 1 amp NEB RQID [facility] Amlodipine Besylate (Norvasc -) 10 mg PO DAILY [facility] Last Admin: 09/26/18 10:30 Dose: 10 mg Aspirin (Ecotrin -) 81 mg PO DAILY [facility] Last Admin: 09/26/18 10:30 Dose: 81 mg Cyclobenzaprine HCl (Flexeril -) 10 mg PO HS [facility] Last Admin: 09/26/18 21:45 Dose: 10 mg Heparin Sodium (Porcine) (Heparin -) 5,000 unit SQ BID [facility] Last Admin: 09/26/18 21:46 Dose: 5,000 unit Oxycodone HCl (Roxicodone -) 5 mg PO Q4H PRN PRN Reason: PAIN SCALE 1-10 Last Admin: 09/26/18 21:44 Dose: 5 mg Pantoprazole Sodium (Protonix -) 40 mg PO DAILY [facility] Last Admin: 09/26/18 10:30 Dose: 40 mg - Objective Vital Signs: Vital Signs Temperature 97.5 F L 09/27/18 06:00 Pulse Rate 58 L 09/27/18 06:00 Respiratory Rate 18 09/27/18 06:00 Blood Pressure 135/70 09/27/18 06:00 O2 Sat by Pulse Oximetry (%) 99 09/26/18 21:00 Cardiovascular: Yes: Regular Rate and Rhythm Respiratory: Yes: Regular, CTA Bilaterally Gastrointestinal: Yes: Normal Bowel Sounds, Soft Labs: CBC, BMP 09/26/18 06:30 09/26/18 06:30 INR, PTT INR 1.15 (0.83-1.09) H 09/25/18 13:27 Assessment/Plan - Problems (1) Chest pain Assessment/Plan: -Cardiology consult-NOTED--RECORDS FROM [facility] -tele monitoring -troponin neg x 2 -aspirin 81mg daily Code(s): R07.9 - CHEST PAIN, UNSPECIFIED Qualifiers: Chest pain type: unspecified Qualified Code(s): R07.9 - Chest pain, unspecified (2) Dyspnea on exertion Assessment/Plan: -pulm consult--CT COPD NO ACUTE PATH -O2 via NC prn for SOB -keep SpO2 >90% Code(s): R06.09 - OTHER FORMS OF DYSPNEA (3) Right sided weakness Assessment/Plan: -Neurology consult--MRI -Head CT scan shows no acute bleed or fracture -neuro checks -fall precautions Code(s): R53.1 - WEAKNESS
[2018-09-27] MEDS: PANTOPRAZOLE 40 MG TABLET (FP) PO SCH (11:57)
[2018-09-27] MEDS: ASPIRIN COATED 81 MG TABLET.EC PO SCH (11:57)
[2018-09-27] MEDS: amLODIPine BESYLATE 10 MG TABLET (FP) PO SCH (11:57)
[2018-09-27] MEDS: HEPARIN NA (PORCINE) 5,000 UNITS/ML 1ML VIAL SQ SCH ×2 (11:57→22:46)
--- NOTE | 2018-09-27 14:41 | PN ---
Progress Note, Physician Chief Complaint: RUE weakness improving No chest pain No events on tele History of Present Illness: 68 year old woman with pmh HTN, HLD, unknown if has CAD reported cardiac cath at [facility] 3 years ago but pt does not know the results now admitted with chest pain, R sided weakness and numbness, sob, palpitations. currently asymptomatic. no pnd, orthopnea, or le edema. - Current Medication List Current Medications: Active Medications Acetaminophen (Tylenol -) 325 mg PO Q4H PRN PRN Reason: MAXWELL SCALE 1-10 Last Admin: 09/26/18 21:45 Dose: 325 mg Albuterol/Ipratropium (Duoneb -) 1 amp NEB RQID [facility] Last Admin: 09/27/18 12:01 Dose: 1 amp Amlodipine Besylate (Norvasc -) 10 mg PO DAILY [facility] Last Admin: 09/27/18 11:57 Dose: 10 mg Aspirin (Ecotrin -) 81 mg PO DAILY [facility] Last Admin: 09/27/18 11:57 Dose: 81 mg Cyclobenzaprine HCl (Flexeril -) 10 mg PO HS [facility] Last Admin: 09/26/18 21:45 Dose: 10 mg Heparin Sodium (Porcine) (Heparin -) 5,000 unit SQ BID [facility] Last Admin: 09/27/18 11:57 Dose: 5,000 unit Oxycodone HCl (Roxicodone -) 5 mg PO Q4H PRN PRN Reason: PAIN SCALE 1-10 Last Admin: 09/26/18 21:44 Dose: 5 mg Pantoprazole Sodium (Protonix -) 40 mg PO DAILY [facility] Last Admin: 09/27/18 11:57 Dose: 40 mg - Objective Vital Signs: Vital Signs Temperature 98.2 F 09/27/18 14:00 Pulse Rate 58 L 09/27/18 14:00 Respiratory Rate 18 09/27/18 14:00 Blood Pressure 115/62 09/27/18 14:00 O2 Sat by Pulse Oximetry (%) 99 09/27/18 09:00 Constitutional: Yes: No Distress Neck: Yes: Supple Cardiovascular: Yes: Regular Rate and Rhythm, S1, S2. No: JVD, Murmur Respiratory: Yes: CTA Bilaterally Gastrointestinal: Yes: Soft Edema: No Labs: CBC, BMP 09/26/18 06:30 09/26/18 06:30 INR, PTT INR 1.15 (0.83-1.09) H 09/25/18 13:27 Problem List - Problems (1) Right sided weakness Code(s): R53.1 - WEAKNESS Assessment/Plan 68 year old woman with pmh HTN, HLD, unknown if has CAD reported cardiac cath at [facility] 3 years ago but pt does not know the results now admitted with chest pain, R sided weakness and numbness, sob, palpitations. currently asymptomatic. no pnd, orthopnea, or le edema. 1) Chest pain-atypical -cardiac enzymes wnl -ekg no ischemia -no further chest pain since admission -Please Obtain results of cardiac cath from [facility] for review -Neurology Consult note comments on MCA lacunar subacute stroke. If patient had recent stroke than no ischemia work up at this time. Plan for echocardiogram Carotid duplex MRI brain Monitor on tele and will likely need outpatient 30 day event monitor. -Aspirin as per neuro Statin/bp control
[2018-09-27] MEDS: oxyCODONE HCL 5 MG TABLET PO PRN ×2 (18:05→22:52)
[2018-09-27] MEDS ORDERED: LORazepam 1 MG TABLET PO ONE (19:45)
[2018-09-27] MEDS: CYCLOBENZAPRINE HCL 10 MG TABLET (FP) PO SCH (22:46)
[2018-09-27] MEDS: ACETAMINOPHEN 325 MG TABLET (FP) PO PRN (22:53)
[2018-09-28] MEDS: ALBUTEROL SO4 2.5/IPRATROPIUM 0.5 INH SOL 3 ML VIAL.NEB. NEB SCH ×4 (08:30→20:39)
[2018-09-28] MEDS: HEPARIN NA (PORCINE) 5,000 UNITS/ML 1ML VIAL SQ SCH ×2 (09:04→22:18)
[2018-09-28] MEDS: ACETAMINOPHEN 325 MG TABLET (FP) PO PRN ×3 (09:05→20:54)
[2018-09-28] MEDS: PANTOPRAZOLE 40 MG TABLET (FP) PO SCH (09:05)
[2018-09-28] MEDS: amLODIPine BESYLATE 10 MG TABLET (FP) PO SCH (09:05)
[2018-09-28] MEDS: oxyCODONE HCL 5 MG TABLET PO PRN ×3 (09:06→20:55)
[2018-09-28] MEDS: ASPIRIN COATED 81 MG TABLET.EC PO SCH (09:07)
--- NOTE | 2018-09-28 09:19 | PN ---
Progress Note, Physician History of Present Illness: events noted Chart reviewed Alert awake oriented sitting at the edge of the bed ate breakfast Mild chest pressure with no chest pain MRI of the brain with no evidence of acute pathology - Current Medication List Current Medications: Active Medications Acetaminophen (Tylenol -) 325 mg PO Q4H PRN PRN Reason: MAXWELL SCALE 1-10 Last Admin: 09/28/18 09:05 Dose: 325 mg Albuterol/Ipratropium (Duoneb -) 1 amp NEB RQID [facility] Last Admin: 09/28/18 08:30 Dose: 1 amp Amlodipine Besylate (Norvasc -) 10 mg PO DAILY [facility] Last Admin: 09/28/18 09:05 Dose: 10 mg Aspirin (Ecotrin -) 81 mg PO DAILY [facility] Last Admin: 09/28/18 09:07 Dose: 81 mg Cyclobenzaprine HCl (Flexeril -) 10 mg PO HS [facility] Last Admin: 09/27/18 22:46 Dose: 10 mg Heparin Sodium (Porcine) (Heparin -) 5,000 unit SQ BID [facility] Last Admin: 09/28/18 09:04 Dose: 5,000 unit Oxycodone HCl (Roxicodone -) 5 mg PO Q4H PRN PRN Reason: PAIN SCALE 1-10 Last Admin: 09/28/18 09:06 Dose: 5 mg Pantoprazole Sodium (Protonix -) 40 mg PO DAILY [facility] Last Admin: 09/28/18 09:05 Dose: 40 mg - Objective Vital Signs: Vital Signs Temperature 97.6 F 09/28/18 06:00 Pulse Rate 55 L 09/28/18 06:00 Respiratory Rate 50 H 09/28/18 06:00 Blood Pressure 138/75 09/28/18 06:00 O2 Sat by Pulse Oximetry (%) 99 09/27/18 21:00 Constitutional: Yes: Well Nourished Eyes: Yes: WNL Neurological: Yes: Alert, Oriented, Babinski negative ...Motor Strength: WNL Labs: CBC, BMP 09/26/18 06:30 09/26/18 06:30 INR, PTT INR 1.15 (0.83-1.09) H 09/25/18 13:27 Problem List - Problems (1) Right sided weakness Assessment/Plan: no evidence of acute CVA Cervical radiculopathy Lumbar lordosis Obesity 1. Weight loss was advised. 2. Physical therapy. 3. Fall precautions. 4. We'll get an MRI of the cervical spine as an outpatient. Code(s): R53.1 - WEAKNESS
--- NOTE | 2018-09-28 09:29 | PN ---
Progress Note, Physician History of Present Illness: c/o sob on exertion chest pain on deep breathing - Current Medication List Current Medications: Active Medications Acetaminophen (Tylenol -) 325 mg PO Q4H PRN PRN Reason: MAXWELL SCALE 1-10 Last Admin: 09/28/18 09:05 Dose: 325 mg Albuterol/Ipratropium (Duoneb -) 1 amp NEB RQID [facility] Last Admin: 09/28/18 08:30 Dose: 1 amp Amlodipine Besylate (Norvasc -) 10 mg PO DAILY [facility] Last Admin: 09/28/18 09:05 Dose: 10 mg Aspirin (Ecotrin -) 81 mg PO DAILY [facility] Last Admin: 09/28/18 09:07 Dose: 81 mg Cyclobenzaprine HCl (Flexeril -) 10 mg PO HS [facility] Last Admin: 09/27/18 22:46 Dose: 10 mg Heparin Sodium (Porcine) (Heparin -) 5,000 unit SQ BID [facility] Last Admin: 09/28/18 09:04 Dose: 5,000 unit Oxycodone HCl (Roxicodone -) 5 mg PO Q4H PRN PRN Reason: PAIN SCALE 1-10 Last Admin: 09/28/18 09:06 Dose: 5 mg Pantoprazole Sodium (Protonix -) 40 mg PO DAILY [facility] Last Admin: 09/28/18 09:05 Dose: 40 mg - Objective Vital Signs: Vital Signs Temperature 97.6 F 09/28/18 06:00 Pulse Rate 55 L 09/28/18 06:00 Respiratory Rate 50 H 09/28/18 06:00 Blood Pressure 138/75 09/28/18 06:00 O2 Sat by Pulse Oximetry (%) 99 09/27/18 21:00 Cardiovascular: Yes: Regular Rate and Rhythm Respiratory: Yes: Regular, CTA Bilaterally Gastrointestinal: Yes: Normal Bowel Sounds, Soft. No: Tenderness Labs: CBC, BMP 09/26/18 06:30 09/26/18 06:30 INR, PTT INR 1.15 (0.83-1.09) H 09/25/18 13:27 Assessment/Plan - Problems (1) Chest pain Assessment/Plan: -Cardiology consult-NOTED--RECORDS FROM [facility] -tele monitoring -troponin neg x 2 -aspirin 81mg daily -stress test Code(s): R07.9 - CHEST PAIN, UNSPECIFIED Qualifiers: Chest pain type: unspecified Qualified Code(s): R07.9 - Chest pain, unspecified (2) Dyspnea on exertion Assessment/Plan: -pulm consult--CT COPD NO ACUTE PATH -O2 via NC prn for SOB -keep SpO2 >90% -stress test Code(s): R06.09 - OTHER FORMS OF DYSPNEA (3) Right sided weakness Assessment/Plan: -Neurology consult--MRI--nad -Head CT scan shows no acute bleed or fracture -neuro checks -fall precautions Code(s): R53.1 - WEAKNESS
--- NOTE | 2018-09-28 13:35 | CONSULT ---
Consult Consult Specialty:: PM&R consult Dr Salas for Dr Zayas Reason for Consultation:: pain - History of Present Illness History of Present Illness: This is a 68 year old woman with a medical history of CAD, HTN, HLD, s/p tonsillectomy, s/p cholecystectomy, s/p hysterectomy, s/p R knee replacement, who presented to the ED 09/25/18 with chest pain and R weakness/ numbness. She was admitted to Telemetry for monitoring. Pulm was consulted, who felt her RYAN was likely 2/2 COPD in active smoker. CT head 09/26/18 shows mild chronic lung disease without acute pathology. Cardiology was consulted for atypical chest pain. Neurology was consulted for weakness; CT head 09/25/18 showed no acute pathology, and MRI brain 09/27/18 showed mild supratentorial gliosos with microangiopathic ischemic changes without acute/ subacute CVA. MRI cervical spine was recommended as outpatient to evaluate for radicular causes. She has not been seen by PT. Physiatry is being consulted for further recommendations. 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 No: Asthma Gastrointestinal: No: Ascites, Ulcerative Colitis Renal/: No: Renal Failure ...: No Musculoskeletal: Yes: Osteoarthritis Endocrine: No: Diabetes Mellitus - Past Surgical History Past Surgical History: Yes: Cholecystectomy, Hysterectomy, Joint Replacement (R knee), Tonsillectomy - Alcohol/Substance Use Hx Alcohol Use: No - Smoking History Smoking history: Current every day smoker Have you smoked in the past 12 months: Yes Aproximately how many cigarettes per day: 10 - Social History ADL: Independent History of Recent Travel: No Home Medications - Allergies Allergies/Adverse Reactions: Allergies Allergy/AdvReac Type Severity Reaction Status Date / Time No Known Allergies Allergy Verified 09/25/18 12:40 - Home Medications Home Medications: Ambulatory Orders Amlodipine Besylate [Norvasc -] 0 mg PO DAILY 09/25/18 Aspirin [Aspirin EC] 81 mg PO DAILY 09/25/18 Omeprazole 20 mg PO DAILY 09/25/18 Oxycodone HCl/Acetaminophen [Percocet 5-325 mg Tablet] 1 tab PO Q4H PRN Simvastatin 40 mg PO DAILY 07/13/19 Review of Systems Findings/Remarks: Denies fevers, pain in eyes/ ears, abdominal pain, dysuria, agitation Notes CP improved, +SOB, B hand/ foot tingling with pain in both neck and back, radiating down LLE into entire foot but no longer radiating into RUE Physical Exam Vital Signs: Vital Signs Temperature 97.7 F 09/28/18 09:00 Pulse Rate 61 09/28/18 09:00 Respiratory Rate 50 H 09/28/18 06:00 Blood Pressure 119/64 09/28/18 09:00 O2 Sat by Pulse Oximetry (%) 99 09/27/18 21:00 Musculoskeletal: Yes: Other (General: calm HF lying in bed NAD N/M: B shoulder flexion to 120 degrees, 4+/5 BUE; 4+/5 B HF then 5/5 BLE; Pinprick decreased R 3rd/ 5th fingers and medial elbow, and decreased L lateral ankle Extremities: no BLE pitting edema, no B calf tenderness, +L SLR) Labs: CBC, BMP 09/26/18 06:30 09/26/18 06:30 Imaging - Results Cat Scan: Report Reviewed (as per HPI) MRI: Report Reviewed (as per HPI) Assessment/Plan Impression: 1) Deficits mobility/ ADLs 2) Gait abnormality 3) Atypical CP with hx CAD, HTN, HLD 4) RYAN, possibly COPD in active smoker 5) Likely cervical/ lumbar radiculopathies 6) Obesity 7) Up to date pneumvax, no documented flu shot 8) hx tosillectomy, s/p cholecystectomy, s/p hysterectomy 9) s/p R knee replacement Recommendations: 1) PT for neck/ core and extremity stretching strengthening ROM and functional mobility 2) Falls, safety precautions 3) Cardiopulmonary precautions 4) Heat/ ice/ US/ TENS neck/ back prn 5) DVT ppx: on hep sc 6) Pain control with Roxidonone and Flexeril; consider adding Gabapentin as well 7) Bowel regimen prn 8) Further radicular work-up as outpatient, may need consideration for BRITTANY as well, depending on progress 9) Continue plan as per primary team 10) Discharge planning: once medically stable and pain controlled, she will likely be able to return to home although depending on hospital course, may require inpatient rehabilitation as well Thank you for this referral.
[2018-09-28 15:52] VITALS: BMI 41.1
[2018-09-28] MEDS ORDERED: DOCUSATE SODIUM 100 MG CAPSULE (FP) PO PRN (18:31)
[2018-09-28] MEDS: POLYETHYLENE GLYCOL 3350 119 GM BTL PO PRN (18:45)
[2018-09-28] MEDS: CYCLOBENZAPRINE HCL 10 MG TABLET (FP) PO SCH (21:03)
[2018-09-28] MEDS: SENNOSIDES/DOCUSATE COMBO (SENNA PLUS) TABLET (UD) PO PRN (21:04)
[2018-09-28] MEDS ORDERED: MORPHINE SULFATE 2 MG/ML VIAL IVPUSH ONE (22:02)
[2018-09-29] MEDS: ACETAMINOPHEN 325 MG TABLET (FP) PO PRN ×3 (06:46→21:14)
[2018-09-29] MEDS: oxyCODONE HCL 5 MG TABLET PO PRN ×3 (06:46→21:13)
[2018-09-29] MEDS: ALBUTEROL SO4 2.5/IPRATROPIUM 0.5 INH SOL 3 ML VIAL.NEB. NEB SCH ×4 (08:08→20:57)
[2018-09-29] MEDS: ASPIRIN COATED 81 MG TABLET.EC PO SCH (09:23)
[2018-09-29] MEDS: amLODIPine BESYLATE 10 MG TABLET (FP) PO SCH (09:23)
[2018-09-29] MEDS: PANTOPRAZOLE 40 MG TABLET (FP) PO SCH (09:23)
[2018-09-29] MEDS: HEPARIN NA (PORCINE) 5,000 UNITS/ML 1ML VIAL SQ SCH ×2 (09:23→21:14)
[2018-09-29] MEDS ORDERED: REGADENOSON 0.4 MG/5 ML PRE-FILLED SYRINGE IVPUSH ONE ×2 (09:45→10:57)
--- NOTE | 2018-09-29 11:05 | PN ---
Progress Note, Physician Chief Complaint: Chest pain Right sided weakness History of Present Illness: NAD, just returned from Stress test MRI brain+ CT head negative - Current Medication List Current Medications: Active Medications Acetaminophen (Tylenol -) 325 mg PO Q4H PRN PRN Reason: MAXWELL SCALE 1-10 Last Admin: 09/29/18 06:46 Dose: 325 mg Albuterol/Ipratropium (Duoneb -) 1 amp NEB RQID [facility] Last Admin: 09/29/18 08:08 Dose: 1 amp Amlodipine Besylate (Norvasc -) 10 mg PO DAILY [facility] Last Admin: 09/29/18 09:23 Dose: 10 mg Aspirin (Ecotrin -) 81 mg PO DAILY [facility] Last Admin: 09/29/18 09:23 Dose: 81 mg Cyclobenzaprine HCl (Flexeril -) 10 mg PO HS [facility] Last Admin: 09/28/18 21:03 Dose: 10 mg Heparin Sodium (Porcine) (Heparin -) 5,000 unit SQ BID [facility] Last Admin: 09/29/18 09:23 Dose: 5,000 unit Oxycodone HCl (Roxicodone -) 5 mg PO Q4H PRN PRN Reason: PAIN SCALE 1-10 Last Admin: 09/29/18 06:46 Dose: 5 mg Pantoprazole Sodium (Protonix -) 40 mg PO DAILY [facility] Last Admin: 09/29/18 09:23 Dose: 40 mg Polyethylene Glycol (Miralax (For Daily Use) -) 17 gm PO Q24H PRN PRN Reason: CONSTIPATION Last Admin: 09/28/18 18:45 Dose: 17 gm Senna/Docusate Sodium (Pericolace -) 2 tablet PO HS PRN PRN Reason: CONSTIPATION Last Admin: 09/28/18 21:04 Dose: 2 tablet - Objective Vital Signs: Vital Signs Temperature 98.1 F 09/29/18 10:00 Pulse Rate 58 L 09/29/18 10:00 Respiratory Rate 20 09/29/18 10:00 Blood Pressure 106/58 L 09/29/18 10:00 O2 Sat by Pulse Oximetry (%) 99 09/29/18 10:00 Constitutional: Yes: Well Nourished, No Distress, Calm, Obese Cardiovascular: Yes: Regular Rate and Rhythm Respiratory: Yes: Regular Gastrointestinal: Yes: Normal Bowel Sounds, Soft, Abdomen, Obese Genitourinary: Yes: WNL Musculoskeletal: Yes: Muscle Weakness Extremities: Yes: WNL Edema: No Peripheral Pulses WNL: Yes Neurological: Yes: Alert, Oriented Psychiatric: Yes: Alert, Oriented Labs: CBC, BMP 09/26/18 06:30 09/26/18 06:30 INR, PTT INR 1.15 (0.83-1.09) H 09/25/18 13:27 Problem List - Problems (1) Chronic back pain Assessment/Plan: -As per pharmacy- pt takes Percocet 5/325 Q8H PRN -Here getting oxycodone 5 mg po Q4H PRN -Was given morphine overnight for excruciating pain -Sees pain management o/p -Will add gabapentin 300 mg po TID- can titrate up as needed Code(s): M54.9 - DORSALGIA, UNSPECIFIED; G89.29 - OTHER CHRONIC PAIN Assessment/Plan (1) Chest pain Assessment/Plan: -Cardiology consult -tele monitoring -troponin neg x 2 -aspirin 81mg daily -Stress test today Code(s): R07.9 - CHEST PAIN, UNSPECIFIED Qualifiers: Chest pain type: unspecified Qualified Code(s): R07.9 - Chest pain, unspecified (2) Dyspnea on exertion Assessment/Plan: -pulm consult -O2 via NC prn for SOB -keep SpO2 >90% Code(s): R06.09 - OTHER FORMS OF DYSPNEA (3) Right sided weakness Assessment/Plan: -Neurology consult -Head CT scan shows no acute bleed or fracture -MRI negative -neuro checks -fall precautions Code(s): R53.1 - WEAKNESS
--- NOTE | 2018-09-29 13:33 | PN ---
Progress Note, Physician History of Present Illness: PULMONARY ALERT,COMFORTABLE,-RESP DISTRESS,-CP - Current Medication List Current Medications: Active Medications Acetaminophen (Tylenol -) 325 mg PO Q4H PRN PRN Reason: MAXWELL SCALE 1-10 Last Admin: 09/29/18 06:46 Dose: 325 mg Albuterol/Ipratropium (Duoneb -) 1 amp NEB RQID [facility] Last Admin: 09/29/18 11:52 Dose: 1 amp Amlodipine Besylate (Norvasc -) 10 mg PO DAILY [facility] Last Admin: 09/29/18 09:23 Dose: 10 mg Aspirin (Ecotrin -) 81 mg PO DAILY [facility] Last Admin: 09/29/18 09:23 Dose: 81 mg Cyclobenzaprine HCl (Flexeril -) 10 mg PO HS [facility] Last Admin: 09/28/18 21:03 Dose: 10 mg Gabapentin (Neurontin -) 300 mg PO TID [facility] Heparin Sodium (Porcine) (Heparin -) 5,000 unit SQ BID [facility] Last Admin: 09/29/18 09:23 Dose: 5,000 unit Oxycodone HCl (Roxicodone -) 5 mg PO Q4H PRN PRN Reason: PAIN SCALE 1-10 Last Admin: 09/29/18 06:46 Dose: 5 mg Pantoprazole Sodium (Protonix -) 40 mg PO DAILY [facility] Last Admin: 09/29/18 09:23 Dose: 40 mg Polyethylene Glycol (Miralax (For Daily Use) -) 17 gm PO Q24H PRN PRN Reason: CONSTIPATION Last Admin: 09/28/18 18:45 Dose: 17 gm Senna/Docusate Sodium (Pericolace -) 2 tablet PO HS PRN PRN Reason: CONSTIPATION Last Admin: 09/28/18 21:04 Dose: 2 tablet - Objective Vital Signs: Vital Signs Temperature 98.1 F 09/29/18 10:00 Pulse Rate 58 L 09/29/18 10:00 Respiratory Rate 20 09/29/18 10:00 Blood Pressure 106/58 L 09/29/18 10:00 O2 Sat by Pulse Oximetry (%) 99 09/29/18 10:00 Constitutional: Yes: Well Nourished, Calm Eyes: Yes: WNL HENT: Yes: WNL Neck: Yes: WNL Cardiovascular: Yes: Regular Rate and Rhythm, S1, S2 Respiratory: Yes: CTA Bilaterally Gastrointestinal: Yes: Normal Bowel Sounds, Soft Extremities: Yes: WNL Edema: No Labs: CBC, BMP 09/26/18 06:30 09/26/18 06:30 INR, PTT INR 1.15 (0.83-1.09) H 09/25/18 13:27 Assessment/Plan Problem List - Problems (1) COPD (chronic obstructive pulmonary disease) Code(s): J44.9 - CHRONIC OBSTRUCTIVE PULMONARY DISEASE, UNSPECIFIED (2) Chest pain Code(s): R07.9 - CHEST PAIN, UNSPECIFIED Qualifiers: Chest pain type: unspecified Qualified Code(s): R07.9 - Chest pain, unspecified (3) Dyspnea on exertion Code(s): R06.09 - OTHER FORMS OF DYSPNEA Assessment/Plan RYAN LIKELY DUE TO COPD IN ACTIVE SMOKER IMPROVED ATYPICAL CHEST PAIN LIKELY OSAS CHECK PRE/POST AMB SPO2 ON R/A ECHO BRONCHODILATORS SMOKING CESSATION SLEEP SCREEN OUTPATIENT PFTS DR WILKINSON
--- NOTE | 2018-09-29 13:55 | PN ---
Progress Note, Physician Chief Complaint: No complaints today NST with anterior ischemia History of Present Illness: 68 year old woman with pmh HTN, HLD, unknown if has CAD reported cardiac cath at [facility] 3 years ago but pt does not know the results now admitted with chest pain, R sided weakness and numbness, sob, palpitations. currently asymptomatic. no pnd, orthopnea, or le edema. - Current Medication List Current Medications: Active Medications Acetaminophen (Tylenol -) 325 mg PO Q4H PRN PRN Reason: MAXWELL SCALE 1-10 Last Admin: 09/29/18 06:46 Dose: 325 mg Albuterol/Ipratropium (Duoneb -) 1 amp NEB RQID [facility] Last Admin: 09/29/18 11:52 Dose: 1 amp Amlodipine Besylate (Norvasc -) 10 mg PO DAILY [facility] Last Admin: 09/29/18 09:23 Dose: 10 mg Aspirin (Ecotrin -) 81 mg PO DAILY [facility] Last Admin: 09/29/18 09:23 Dose: 81 mg Cyclobenzaprine HCl (Flexeril -) 10 mg PO HS [facility] Last Admin: 09/28/18 21:03 Dose: 10 mg Gabapentin (Neurontin -) 300 mg PO TID [facility] Heparin Sodium (Porcine) (Heparin -) 5,000 unit SQ BID [facility] Last Admin: 09/29/18 09:23 Dose: 5,000 unit Oxycodone HCl (Roxicodone -) 5 mg PO Q4H PRN PRN Reason: PAIN SCALE 1-10 Last Admin: 09/29/18 06:46 Dose: 5 mg Pantoprazole Sodium (Protonix -) 40 mg PO DAILY [facility] Last Admin: 09/29/18 09:23 Dose: 40 mg Polyethylene Glycol (Miralax (For Daily Use) -) 17 gm PO Q24H PRN PRN Reason: CONSTIPATION Last Admin: 09/28/18 18:45 Dose: 17 gm Senna/Docusate Sodium (Pericolace -) 2 tablet PO HS PRN PRN Reason: CONSTIPATION Last Admin: 09/28/18 21:04 Dose: 2 tablet - Objective Vital Signs: Vital Signs Temperature 98.1 F 09/29/18 10:00 Pulse Rate 58 L 09/29/18 10:00 Respiratory Rate 20 09/29/18 10:00 Blood Pressure 106/58 L 09/29/18 10:00 O2 Sat by Pulse Oximetry (%) 99 09/29/18 10:00 Constitutional: Yes: No Distress Neck: Yes: Supple Cardiovascular: Yes: Regular Rate and Rhythm Respiratory: Yes: CTA Bilaterally Gastrointestinal: Yes: Soft Extremities: Yes: WNL Edema: No Labs: CBC, BMP 09/26/18 06:30 09/26/18 06:30 INR, PTT INR 1.15 (0.83-1.09) H 09/25/18 13:27 Problem List - Problems (1) Right sided weakness Code(s): R53.1 - WEAKNESS Assessment/Plan 68 year old woman with pmh HTN, HLD, unknown if has CAD reported cardiac cath at [facility] 3 years ago but pt does not know the results now admitted with chest pain, R sided weakness and numbness, sob, palpitations. currently asymptomatic. no pnd, orthopnea, or le edema. 1) Chest pain-atypical -cardiac enzymes wnl -ekg no ischemia -Patient went for NST and read as anterior wall ischemia. Aspirin Atorvastatin 10mg daily if no contraindication. No beta asya at this time given HR 50s-60 MRI no acute stroke but neuro's note mentions [facility] subacute stroke. If neuro confirms that no stroke than if patient agrees plan for cardiac cath at [facility]. Keep NPO tomorrow possible transfer. -Plan for echocardiogram
--- NOTE | 2018-09-29 16:24 | ECHO ---
Name: FLAKO BARNHART Exam:Adult Echocardiogram Study Date: 09/29/2018 03:33 PM Age: 68 yrs Reason For Study: Chest pain Height: 62 in Weight: 227 lb BSA: 2.0 m2 Procedure The study was technically difficult with many images being suboptimal in quality. Left Ventricle The left ventricular size, thickness and function are normal. The left ventricle is not well visualiz ed. The left ventricular ejection fraction is normal. E/A reversal consistent with but not diagnostic of poor LV compliance. Regional wall motion abnormalities cannot be excluded due to limited visualization. Right Ventricle The right ventricle is normal in size and function. Atria The left atrium is not well visualized. Right atrium not well visualized. Mitral Valve The mitral valve is not well visualized. There is no mitral valve stenosis. There is trace to mild mi tral regurgitation. Tricuspid Valve There is mild tricuspid valve thickening. There is no tricuspid stenosis. There is mild tricuspid regurgitation. Right ventricular systolic pressure is normal. Aortic Valve The aortic valve is not well visualized. No hemodynamically significant valvular aortic stenosis. No aortic regurgitation is present. Pulmonic Valve The pulmonic valve is not well visualized. Great Vessels The aortic root is not well visualized. Pericardium/Pleura There is no pericardial effusion. Interpretation Summary The study was technically difficult with many images being suboptimal in quality. The left ventricular size, thickness and function are normal The left ventricular ejection fraction is normal. There is mild tricuspid regurgitation. Right ventricular systolic pressure is normal. The left ventricle is not well visualized. Regional wall motion abnormalities cannot be excluded due to limited visualization. The left atrium is not well visualized. Right atrium not well visualized. There is trace to mild mitral regurgitation. E/A reversal consistent with but not diagnostic of poor LV compliance MD Pablo Oliva 09/29/2018 04:23 PM
[2018-09-29] MEDS: GABAPENTIN 300 MG CAPSULE (FP) PO SCH ×2 (16:46→21:13)
[2018-09-29] MEDS: POLYETHYLENE GLYCOL 3350 119 GM BTL PO PRN (16:46)
[2018-09-29] MEDS: CYCLOBENZAPRINE HCL 10 MG TABLET (FP) PO SCH (21:13)
[2018-09-29] MEDS: SENNOSIDES/DOCUSATE COMBO (SENNA PLUS) TABLET (UD) PO PRN (21:14)
[2018-09-30] MEDS: GABAPENTIN 300 MG CAPSULE (FP) PO SCH (05:51)
[2018-09-30] MEDS: ALBUTEROL SO4 2.5/IPRATROPIUM 0.5 INH SOL 3 ML VIAL.NEB. NEB SCH (08:09)
[2018-09-30] MEDS: PANTOPRAZOLE 40 MG TABLET (FP) PO SCH (09:37)
[2018-09-30] MEDS: ASPIRIN COATED 81 MG TABLET.EC PO SCH (09:37)
[2018-09-30] MEDS: HEPARIN NA (PORCINE) 5,000 UNITS/ML 1ML VIAL SQ SCH (09:37)
[2018-09-30] MEDS: amLODIPine BESYLATE 10 MG TABLET (FP) PO SCH (09:37)
[2018-09-30] MEDS: oxyCODONE HCL 5 MG TABLET PO PRN (09:45)
[2018-09-30] MEDS: ACETAMINOPHEN 325 MG TABLET (FP) PO PRN (09:46)
--- NOTE | 2018-09-30 11:23 | PN ---
Progress Note, Physician Chief Complaint: Chest pain Right sided weakness History of Present Illness: NAD, Stress test + Arranged by cardiology to be transferred to [facility] today for cardiac cath Back pain improved MRI brain+ CT head negative - Current Medication List Current Medications: Active Medications Acetaminophen (Tylenol -) 325 mg PO Q4H PRN PRN Reason: MAXWELL SCALE 1-10 Last Admin: 09/30/18 09:46 Dose: 325 mg Albuterol/Ipratropium (Duoneb -) 1 amp NEB RQID [facility] Last Admin: 09/30/18 08:09 Dose: 1 amp Amlodipine Besylate (Norvasc -) 10 mg PO DAILY [facility] Last Admin: 09/30/18 09:37 Dose: 10 mg Aspirin (Ecotrin -) 81 mg PO DAILY [facility] Last Admin: 09/30/18 09:37 Dose: 81 mg Cyclobenzaprine HCl (Flexeril -) 10 mg PO HS [facility] Last Admin: 09/29/18 21:13 Dose: 10 mg Gabapentin (Neurontin -) 300 mg PO TID [facility] Last Admin: 09/30/18 05:51 Dose: 300 mg Heparin Sodium (Porcine) (Heparin -) 5,000 unit SQ BID [facility] Last Admin: 09/30/18 09:37 Dose: 5,000 unit Oxycodone HCl (Roxicodone -) 5 mg PO Q4H PRN PRN Reason: PAIN SCALE 1-10 Last Admin: 09/30/18 09:45 Dose: 5 mg Pantoprazole Sodium (Protonix -) 40 mg PO DAILY [facility] Last Admin: 09/30/18 09:37 Dose: 40 mg Polyethylene Glycol (Miralax (For Daily Use) -) 17 gm PO Q24H PRN PRN Reason: CONSTIPATION Last Admin: 09/29/18 16:46 Dose: 17 gm Senna/Docusate Sodium (Pericolace -) 2 tablet PO HS PRN PRN Reason: CONSTIPATION Last Admin: 09/29/18 21:14 Dose: 2 tablet - Objective Vital Signs: Vital Signs Temperature 98.4 F 09/30/18 05:52 Pulse Rate 60 09/30/18 05:52 Respiratory Rate 16 09/30/18 05:52 Blood Pressure 114/55 L 09/30/18 05:52 O2 Sat by Pulse Oximetry (%) 95 09/29/18 20:42 Constitutional: Yes: Well Nourished, No Distress, Calm Cardiovascular: Yes: Regular Rate and Rhythm Respiratory: Yes: Regular Gastrointestinal: Yes: Normal Bowel Sounds, Soft, Abdomen, Obese Genitourinary: Yes: WNL Musculoskeletal: Yes: WNL Extremities: Yes: WNL Edema: No Peripheral Pulses WNL: Yes Neurological: Yes: Alert, Oriented Psychiatric: Yes: Alert, Oriented Labs: CBC, BMP 09/26/18 06:30 09/26/18 06:30 INR, PTT INR 1.15 (0.83-1.09) H 09/25/18 13:27 Problem List - Problems (1) Chronic back pain Assessment/Plan: -Pain better controlled with the current regimen -As per pharmacy- pt takes Percocet 5/325 Q8H PRN -Here getting oxycodone 5 mg po Q4H PRN -Sees pain management o/p -Added gabapentin 300 mg po TID- can titrate up as needed Code(s): M54.9 - DORSALGIA, UNSPECIFIED; G89.29 - OTHER CHRONIC PAIN Assessment/Plan (1) Chest pain Assessment/Plan: -Cardiology consult -tele monitoring -troponin neg x 2 -aspirin 81mg daily -Stress test + for ischemia Code(s): R07.9 - CHEST PAIN, UNSPECIFIED Qualifiers: Chest pain type: unspecified Qualified Code(s): R07.9 - Chest pain, unspecified (2) Dyspnea on exertion Assessment/Plan: -pulm consult -O2 via NC prn for SOB -keep SpO2 >90% Code(s): R06.09 - OTHER FORMS OF DYSPNEA (3) Right sided weakness Assessment/Plan: -Neurology consult -Head CT scan shows no acute bleed or fracture -MRI negative -neuro checks -fall precautions Code(s): R53.1 - WEAKNESS
[2018-09-30 12:05] VITALS: BP 128/72; PULSE 61; TEMP 97.9
== END 2018-09-30 11:32 | disposition short-term general hospital (02) | DRG 313 ==
LOC: JER 11:52 → JERBED 15:21 → OBSVTOIN 16:37 → J4S 09-26 20:41
PROVIDERS: ADMIT Family Medicine; ATTEND Family Medicine
DX: R07.89 Other chest pain (principal); Z68.41 Body mass index [BMI] 40.0-44.9, adult; I10 Essential (primary) hypertension; E78.5 Hyperlipidemia, unspecified; G47.33 Obstructive sleep apnea (adult) (pediatric); I25.10 Atherosclerotic heart disease of native coronary artery without angina pectoris; Z98.61 Coronary angioplasty status; F17.210 Nicotine dependence, cigarettes, uncomplicated; Z90.710 Acquired absence of both cervix and uterus; Z96.651 Presence of right artificial knee joint; E66.9 Obesity, unspecified; R53.1 Weakness; J45.909 Unspecified asthma, uncomplicated; F41.9 Anxiety disorder, unspecified; M19.90 Unspecified osteoarthritis, unspecified site; M54.12 Radiculopathy, cervical region; M40.56 Lordosis, unspecified, lumbar region
CPT/HCPCS: 36415; 70450-TC; 70551-TC; 71045-TC-FY; 71250-TC; 78452-TC; 80053; 80061; 82550; 83721; 83735; 83880; 84100; 84436; 84443; 84484; 85025; 85610; 85730; 93005; 93010; 93017; 93306-TC; 94640; 97116-GP; 97161-GP; 99285-25; A9502; G0378; J1644; J2785

== ENCOUNTER 2019-05-17 21:23 | Emergency (ER) | payer OTHER ==
[2019-05-17] MEDS ORDERED: KETOROLAC TROMETHAMINE 30 MG/1 ML VIAL IM ONE (21:29)
--- NOTE | 2019-05-17 21:29 | PDOC ---
Rapid Medical Evaluation Medical Evaluation: Allergies Allergy/AdvReac Type Severity Reaction Status Date / Time No Known Allergies Allergy Verified 09/25/18 12:40 05/17/19 21:27 CC: back pain to lower back s/p "back surgery" 1 month ago; denies saddle anesthesia, incontinence of b/b PE: No bony tenderness to L-spine. No CVAT. no neuro deficits noted. Orders: toradol Patient will proceed to ED for further evaluation. Discharge Disposition - Diagnosis Chronic back pain - Referrals - Patient Instructions - Post Discharge Activity
[2019-05-17 21:30] VITALS: BP 144/48; PULSE 60; TEMP 97.8; BMI 38.9
[2019-05-17] MEDS ORDERED: KETOROLAC TROMETHAMINE 30 MG/1 ML VIAL ONE (22:38)
[2019-05-18] MEDS ORDERED: CYCLOBENZAPRINE HCL 10 MG TABLET (FP) PO ONE (00:02)
[2019-05-18] MEDS ORDERED: LIDOCAINE 5% TOPICAL PATCH TP ONE (00:03)
[2019-05-18] MEDS ORDERED: LIDOCAINE 5% TOPICAL PATCH ONE (00:11)
[2019-05-18] MEDS ORDERED: CYCLOBENZAPRINE HCL 10 MG TABLET (FP) ONE (00:11)
--- NOTE | 2019-05-18 00:22 | PDOC ---
Documentation entered by Sol Davidson SCRIBE, acting as scribe for Leighann Felix MD. Leighann Felix MD: This documentation has been prepared by the Lety smith Xhesika, SCRIBE, under my direction and personally reviewed by me in its entirety. I confirm that the documentation accurately reflects all work, treatment, procedures, and medical decision making performed by me. Attending Attestation - Resident Resident Name: Richie Staples - ED Attending Attestation I have performed the following: I have examined & evaluated the patient, The case was reviewed & discussed with the resident, I agree w/resident's findings & plan, Exceptions are as noted - HPI HPI: 05/17/19 23:38 The patient is a 69yo female with a PMH of HTN, HLD, CAD, recent back surgery ( 1 month ago) who presents to the ED for throbbing back pain s/p fall 4 days ago (05/14/19). The pt states she was walking and fell down on her back. Pt denies any LOC. The patient denies chest pain, shortness of breath, headache and dizziness. Denies fever, chills, cough, nausea, vomiting, diarrhea and constipation. Denies dysuria, frequency, urgency and hematuria. Allergies: NKDA PCP: Dr. Shen - Physicial Exam PE: 05/18/19 00:08 69-year-old female presents with lumbar back pain that has been present since she fell 4 days ago head ncat neck no cervical vertebral midline tenderness lungs no wheezing, no rales cvs [id number] Torso :there is a well healed incision site on her back , no ecchymosis noted abdomen protuberant no rebound, no guarding Tenderness along her L5 region that is bandlike ,"squeezing", but NO midline vertebra tenderness, no erythema neuro axox3,ambulatory, no saddle anesthesia, no numbness , motor strength 5/5 b/l - Medical Decision Making 05/18/19 00:21 69-year-old female who had back surgery and March fell 4 days ago and has had back pain that she describes as squeezing She has no bladder or bowel incontinence, no saddle anesthesia, no leg numbness or tingling at this time 03/04/20 00:44 Plain films do not show any acute vertebral fracture
--- NOTE | 2019-05-18 00:27 | PDOC ---
History of Present Illness - General Chief Complaint: Back Pain Stated Complaint: BACK PAIN Time Seen by Provider: 05/17/19 21:27 History Source: Patient Exam Limitations: No Limitations - History of Present Illness Initial Comments: 05/18/19 00:12 69 yo female CAD, HTN, HLD, s/p tonsillectomy, s/p cholecystectomy, s/p hysterectomy, s/p R knee replacement and s/p spinal decompression [facility] 03/2019 presents to the ED for lower back pain. Pt states she fell backwards onto her back 4 days ago and since that episode, she has had worsening lower back pain described as squeezing, non localized and it radiates across the bilateral lower back. Denies saddle anesthesia, weakness/numbness into her lower ext, incontinence of B/B, denies abdominal pain, denies changes in urinary habits. Pt takes opiates after surgery which is prescribed by her Surgeon without relief at home. Pt is able to ambulate at home without difficulty Past History - Past Medical History Allergies/Adverse Reactions: Allergies Allergy/AdvReac Type Severity Reaction Status Date / Time No Known Allergies Allergy Verified 05/17/19 21:30 Home Medications: Ambulatory Orders Amlodipine Besylate [Norvasc -] 0 mg PO DAILY 09/25/18 Aspirin [Aspirin EC] 81 mg PO DAILY 09/25/18 Omeprazole 20 mg PO DAILY 09/25/18 Oxycodone HCl/Acetaminophen [Percocet 5-325 mg Tablet] 1 tab PO Q4H PRN Simvastatin 40 mg PO DAILY 09/25/18 Acetaminophen [Tylenol .Regular Strength -] 325 mg PO Q4H PRN tablet 09/30/18 Albuterol 2.5/Ipratropium 0.5 [Duoneb -] 1 amp NEB RQID amp 09/30/18 Cyclobenzaprine HCl [Flexeril -] 10 mg PO HS tablet 09/30/18 Gabapentin [Neurontin -] 300 mg PO TID capsule 09/30/18 Heparin - 5,000 unit SQ BID vial 09/30/18 Pantoprazole Sodium [Protonix -] 40 mg PO DAILY tablet.ec 09/30/18 Polyethylene Glycol 3350 [Miralax 119 gm Btl -] 17 gm PO Q24H PRN bottle Sennosides/Docusate Sodium [Pericolace -] 2 tablet PO HS PRN tablet 09/30/18 Cyclobenzaprine HCl [Flexeril 10 mg] 10 mg PO BID PRN 7 Days #14 tablet Lidocaine 5% Patch [Lidoderm Patch -] 1 patch TP DAILY #7 patch 05/18/19 Cardiac Disorders: Yes (CAD,cath) COPD: Yes HTN: Yes Hypercholesterolemia: Yes - Surgical History Abdominal Surgery: Yes Cholecystectomy: Yes Neurologic Surgery: Yes (lumbar spine) - Psycho Social/Smoking Cessation Hx Smoking History: Never smoked Have you smoked in the past 12 months: Yes Number of Cigarettes Smoked Daily: 10 'Breaking Loose' booklet given: 09/27/18 Hx Alcohol Use: No Drug/Substance Use Hx: No Substance Use Type: None Hx Substance Use Treatment: No Review of Systems - Review of Systems Constitutional: Yes: See HPI HEENTM: Yes: See HPI Respiratory: Yes: See HPI Cardiac (ROS): Yes: See HPI ABD/GI: Yes: See HPI : Yes: See HPI Musculoskeletal: Yes: See HPI Integumentary: Yes: See HPI Neurological: Yes: See HPI *Physical Exam - Vital Signs Last Vital Signs Temp Pulse Resp BP Pulse Ox 97.8 F 60 18 144/48 L 100 05/17/19 21:27 05/17/19 21:27 05/17/19 21:27 05/17/19 21:27 05/17/19 21:27 - Physical Exam General Appearance: Yes: Nourished, Appropriately Dressed. No: Apparent Distress HEENT: positive: EOMI Neck: positive: Supple. negative: Carotid bruit Respiratory/Chest: positive: Lungs Clear, Normal Breath Sounds. negative: Respiratory Distress, Accessory Muscle Use, Rapid RR, Crackles, Rales, Rhonchi, Stridor, Wheezing Cardiovascular: positive: Regular Rhythm, Regular Rate, S1, S2. negative: Edema , JVD, Murmur Vascular Pulses: Dorsalis-Pedis (R): 4+, Doralis-Pedis (L): 4+ Gastrointestinal/Abdominal: positive: Flat, Soft. 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 NML intact, Fully Oriented, Alert, Normal Mood/ Affect, Normal Response, Motor Strength 07/18 ED Treatment Course - RADIOLOGY Radiology Studies Ordered: Category Date Time Status SPINE-LUMBAR SACRAL [RAD] Stat Radiology 05/18/19 00:03 Ordered - Medications Given in the ED: ED Medications Discontinued Medications Generic Name Dose Route Start Last Admin Trade Name Freq PRN Reason Stop Dose Admin Ketorolac Tromethamine 30 mg 05/17/19 21:29 05/17/19 22:45 Toradol Injection - IM 05/17/19 21:30 30 mg ONCE ONE Administration Medical Decision Making - Medical Decision Making 05/18/19 01:11 69 yo female CAD, HTN, HLD, s/p tonsillectomy, s/p cholecystectomy, s/p hysterectomy, s/p R knee replacement and s/p spinal decompression [facility] 03/2019 presents to the ED for lower back pain. Pt states she fell backwards onto her back 4 days ago and since that episode, she has had worsening lower back pain described as squeezing, non localized and it radiates across the bilateral lower back. Denies saddle anesthesia, weakness/numbness into her lower ext, incontinence of B/B, denies abdominal pain, denies changes in urinary habits. Pt takes opiates after surgery which is prescribed by her Surgeon without relief at home. Pt is able to ambulate at home without difficulty vitals stable Pt has no concerning neuro deficits, ambulates Pt given toradol, lidoderm patch and cyclobenzaprine given with some relief Lumbar x ray ed read neg for fracture or dislocation will give 1 percocet for pain and pt is safe far DC home with f/u PCP and Surgeon after the fall 05/18/19 01:38 Pt feels much better, is ambulatory and agrees DC home with Surgeon f/u is the best plan sent Lidoderm patch and muscle relaxant to pharmacy. Pt states she has Percocets at home from surgery that she uses sparingly Discharge - Discharge Information Problems reviewed: Yes Clinical Impression/Diagnosis: Chronic back pain Disposition: HOME - Admission No - Additional Discharge Information Prescriptions: Cyclobenzaprine HCl [Flexeril 10 mg] 10 mg PO BID PRN 7 Days #14 tablet PRN Reason: Back Pain Lidocaine 5% Patch [Lidoderm Patch -] 1 patch TP DAILY #7 patch - Follow up/Referral Referrals: Tima Shen [Primary Care Provider] - - Patient Discharge Instructions Patient Printed Discharge Instructions: DI for Low Back Pain - Post Discharge Activity
[2019-05-18] MEDS ORDERED: LIDOCAINE PATCH REMOVAL MC SCH (22:00)
== END 2019-05-18 01:53 | disposition home or self-care (01) ==
LOC: JER 21:23
PROC: 3E0233Z Introduction of Anti-inflammatory into Muscle, Percutaneous Approach (ICD-10-PCS; principal; 2019-05-17)
DX: Z04.3 Encounter for examination and observation following other accident (principal); M54.5 Low back pain; W19.XXXA Unspecified fall, initial encounter; Y93.01 Activity, walking, marching and hiking; Y92.89 Other specified places as the place of occurrence of the external cause; Y99.8 Other external cause status; I25.10 Atherosclerotic heart disease of native coronary artery without angina pectoris; I10 Essential (primary) hypertension; Z98.61 Coronary angioplasty status; E78.5 Hyperlipidemia, unspecified; J44.9 Chronic obstructive pulmonary disease, unspecified; Z98.890 Other specified postprocedural states; Z79.82 Long term (current) use of aspirin
CPT/HCPCS: 72100-TC-FY; 96372; 99284-25

== ENCOUNTER 2022-08-12 03:41 | Day surgery (SDC) | payer OTHER ==
[2022-08-04 14:12] VITALS: BMI 43.0
[2022-08-12 08:31] VITALS: RESP 18
[2022-08-12] MEDS ORDERED: MIDAZOLAM HCL 2 MG/2 ML SINGLE DOSE VIAL ONE ×2 (11:02→11:06)
[2022-08-12] MEDS ORDERED: PROPOFOL 20 ML ONE (11:18)
[2022-08-12 12:36] VITALS: PULSE 62; TEMP 97.9
[2022-08-12 13:16] VITALS: BP 147/73
== END 2022-08-12 13:07 | disposition home or self-care (01) ==
LOC: JASU-SURG 03:41
PROVIDERS: ATTEND Urology
PROC: 0TF4XZZ Fragmentation in Left Kidney Pelvis, External Approach (ICD-10-PCS; principal; 2022-08-12 10:30)
DX: N20.0 Calculus of kidney (principal)

== ENCOUNTER 2022-12-29 09:56 | Emergency (ER) | payer OTHER ==
[2022-12-29 10:02] VITALS: BP 136/48; PULSE 65; RESP 16; TEMP 98.2; BMI 42.0
[2022-12-29] MEDS ORDERED: ACETAMINOPHEN 1000 MG/100 ML BAG IVPB ONE (11:02)
[2022-12-29] MEDS ORDERED: METHOCARBAMOL 750 MG TABLET PO ONE (11:02)
[2022-12-29] MEDS ORDERED: LIDOCAINE 4% PATCH TP ONE ×2 (11:03→11:27)
[2022-12-29] MEDS ORDERED: METHOCARBAMOL 500 MG TABLET PO ONE (11:27)
[2022-12-29] MEDS ORDERED: ACETAMINOPHEN INJECTION 100 ML IVPB ONE (11:28)
[2022-12-29] MEDS ORDERED: METHOCARBAMOL 500 MG TABLET ONE (11:28)
[2022-12-29 11:51] LABS: BASO % 0.5 % (0-2.0); EOS % 0.9 % (0-4.5); HEMATOCRIT 34.8 % (32.4-45.2); HEMOGLOBIN 11.3 GM/dL (10.7-15.3); LYMPH % 20.1 % (8-40); MCH 27.9 pg (25.7-33.7); MCHC 32.4 g/dl (32.0-36.0); MEAN CELL VOLUME 86.1 fl (80-96); MEAN PLT VOLUME 7.9 fl (7.5-11.1); MONO % 6.8 % (3.8-10.2); NEUT % 71.7 % (42.8-82.8); PLATELET COUNT 269 10^3/uL (134-434); RBC 4.05 M/mm3 (3.60-5.2); RDW 14.6 % (11.6-15.6); WHITE BLOOD COUNT 10.3 K/mm3 (4.0-10.0)
[2022-12-29 12:30] LABS: CALCIUM 9.3 mg/dL (8.5-10.1); POTASSIUM 4.4 mmol/L (3.5-5.1)
[2022-12-29 12:31] LABS: ALBUMIN 3.6 g/dl (3.4-5.0); BLOOD UREA NITROGEN 14.1 mg/dL (7-18)
[2022-12-29 12:34] LABS: CREATININE 0.7 mg/dL (0.55-1.3)
[2022-12-29 12:35] LABS: BILIRUBIN,TOTAL 0.5 mg/dL (0.2-1); TOT PROT 7.1 g/dl (6.4-8.2)
[2022-12-29] MEDS ORDERED: morphine CARPU-JECT 4 MG/1 ML DISP.SYRIN IVPUSH ONE (13:05)
[2022-12-29] MEDS ORDERED: morphine SULFATE 4 MG/ML VIAL ONE (13:24)
[2022-12-29] MEDS ORDERED: LIDOCAINE PATCH REMOVAL MC SCH (22:00)
== END 2022-12-29 15:05 | disposition home or self-care (01) ==
LOC: JERFT 09:56
PROC: 3E033NZ Introduction of Analgesics, Hypnotics, Sedatives into Peripheral Vein, Percutaneous Approach (ICD-10-PCS; principal; 2022-12-29)
PROC: 3E033GC Introduction of Other Therapeutic Substance into Peripheral Vein, Percutaneous Approach (ICD-10-PCS; 2022-12-29)
DX: M54.50 Low back pain, unspecified (principal); M25.552 Pain in left hip; R26.2 Difficulty in walking, not elsewhere classified
CPT/HCPCS: 36415; 72100-TC-FY; 80053; 85025; 96374; 96375; 99284-25

== ENCOUNTER 2023-06-04 05:01 | Day surgery (SDC) | payer OTHER ==
[2023-06-02 11:09] VITALS: BMI 42.0
[2023-06-04 10:05] VITALS: RESP 18; TEMP 98.7
[2023-06-04 10:57] VITALS: BP 113/65; PULSE 60
== END 2023-06-04 10:57 | disposition home or self-care (01) ==
LOC: JASU-ENDO 05:01
PROVIDERS: ATTEND Internal Medicine Gastroenterology
PROC: 0DBN8ZX Excision of Sigmoid Colon, Via Natural or Artificial Opening Endoscopic, Diagnostic (ICD-10-PCS; 2023-06-04)
PROC: 0DBP8ZX Excision of Rectum, Via Natural or Artificial Opening Endoscopic, Diagnostic (ICD-10-PCS; 2023-06-04)
PROC: 0DB68ZX Excision of Stomach, Via Natural or Artificial Opening Endoscopic, Diagnostic (ICD-10-PCS; 2023-06-04)
PROC: 0DB78ZX Excision of Stomach, Pylorus, Via Natural or Artificial Opening Endoscopic, Diagnostic (ICD-10-PCS; 2023-06-04)
PROC: 0DBM8ZX Excision of Descending Colon, Via Natural or Artificial Opening Endoscopic, Diagnostic (ICD-10-PCS; principal; 2023-06-04 09:00)
DX: Z12.11 Encounter for screening for malignant neoplasm of colon (principal); D12.8 Benign neoplasm of rectum; D12.4 Benign neoplasm of descending colon; D12.5 Benign neoplasm of sigmoid colon; Z80.0 Family history of malignant neoplasm of digestive organs; K29.50 Unspecified chronic gastritis without bleeding
CPT/HCPCS: 88305-TC; 88342-TC